=== PATIENT | male | born 1990 | race Caucasian/White ===

== ENCOUNTER 2019-08-15 16:40 | Emergency (ER) | payer OTHER ==
[~2019-08-15] VITALS: Ht 177.8 cm; Wt 179.2 kg
--- NOTE | 2019-08-15 16:45 | NUR ---
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
--- NOTE | 2019-08-15 17:19 | NUR ---
SEEN AND EXAMINED BY SHAYLA NEGRO
--- NOTE | 2019-08-15 17:25 | NUR ---
RAPID INFLUENZA OBTAINED AND SENT TO LAB.
[2019-08-15 17:37] LABS: BASOPHILS # (AUTO) 0.1 /CMM (0.0-0.2); BASOPHILS % (AUTO) 0.7 % (0.0-2.0); HEMATOCRIT 44 % (39-51); HEMOGLOBIN 14.5 g/dL (13.5-17.5); LYMPHOCYTES # (AUTO) 2.5 /CMM (0.8-4.8); LYMPHOCYTES % (AUTO) 25.3 % (20.0-44.0); MEAN CORPUSCULAR HGB CONC 33 g/dl (31.0-36.0); MEAN CORPUSCULAR VOLUME 82 fL (80-96); MONOCYTES # (AUTO) 0.7 /CMM (0.1-1.30); MONOCYTES % (AUTO) 7.4 % (2.0-12.0); NEUTROPHILS # (AUTO) 6.3 /CMM (1.8-8.9); NEUTROPHILS % (AUTO) 64.6 % (43.0-81.0); PLATELET COUNT (AUTO) 352 /CMM (150-450); RED BLOOD CELL COUNT(AUTO) 5.32 MIL/uL (4.5-6.0); WHITE BLOOD COUNT (AUTO) 9.7 K/uL (4.3-11.0)
--- NOTE | 2019-08-15 17:45 | NUR ---
ORTHOPEDIC TECHNICIAN AT BEDSIDE FOR XRAY.
[2019-08-15 17:49] LABS: CARBON DIOXIDE 27 mmol/L (21-32); CHLORIDE 103 mmol/L (98-107); CREATININE 1.1 mg/dL (0.6-1.3); GLUCOSE 106 mg/dL (74-106); POTASSIUM 3.8 mmol/L (3.5-5.1); SODIUM SERUM 139 mmol/L (136-145); UREA NITROGEN, BLOOD 19 mg/dL (7-18)
[2019-08-15 17:55] LABS: ALANINE AMINOTRANSFERASE 42 U/L (12-78); ALBUMIN 3.8 g/dL (3.4-5.0); ALKALINE PHOSPHATASE 47 U/L (46-116); ASPARTATE AMINOTRANSFERASE 18 U/L (15-37); BILIRUBIN,TOTAL 0.2 mg/dL (0.2-1.0); LIPASE 96 U/L (73-393)
[2019-08-15 19:03] VITALS: BP 121/77
--- NOTE | 2019-08-15 19:03 | NUR ---
4Patient discharged to home in stable condition. Written and verbal after care instructions given. Patient verbalizes understanding of instruction.
== END 2019-08-15 19:05 | disposition home or self-care (01) ==
LOC: ER 16:44
DX: R07.89 Other chest pain (principal); R05 Cough; J45.909 Unspecified asthma, uncomplicated; E66.01 Morbid (severe) obesity due to excess calories; Z68.43 Body mass index [BMI] 50.0-59.9, adult; Z88.5 Allergy status to narcotic agent
CPT/HCPCS: 36415; 71045-TC; 80053-TC; 83690-TC; 84484-TC; 85025-TC